=== PATIENT | male | born 1955 | race Caucasian/White ===

== ENCOUNTER 2025-05-10 07:33 | Outpatient (CLI) | payer MEDICARE, SELFPAY ==
--- NOTE | ~2025-05-10 | PE_ITS ---
EXAMINATION: PET_PETPSMAST_PT DATE: 05/10/2025 10:46 INDICATION: Prostate cancer TECHNIQUE: 5.561 mCi of Illucix Ga-68([id number]) was administered i.v. Low dose computed tomography (CT) images were acquired from the base of the brain to the base of the brain to the proximal thighs for attenuation correction and anatomic localization. Positron emission tomography (PET) images were acquired in the same distribution beginning 78 minutes after injection. Images including fused PET/CT images were reconstructed in axial, coronal, and sagittal planes. Automated exposure control technique was employed. The dose-length product was 888.41mGy-cm. COMPARISON: None FINDINGS: Head/neck: Typical pattern of symmetric physiologic increased activity in the lacrimal, parotid and submandibular glands as well as along the mucosa of the nasal and oral cavities, pharynx and hypopharynx. No pathologically enlarged cervical lymphadenopathy or suspicious foci of increased uptake in the visualized head or neck. Atherosclerotic calcifications at the bilateral carotid bulbs. Chest: L5 left upper lobe nodule along with calcified left hilar and mediastinal lymph nodes consistent with old granulomatous disease. Mild dependent atelectasis in both lower lobes. No suspicious pulmonary nodules, pneumonia, pulmonary edema or pleural effusion. Heart size is normal. Atherosclerotic coronary artery calcification and likely coronary artery stenting. No pericardial effusion. Thoracic aorta is normal in caliber. No pathologically enlarged or PSMA avid thoracic lymphadenopathy. Abdomen/pelvis/proximal thighs: Physiologic renal accumulation and excretion of activity in the kidneys, bladder and along portions of ureters. Photopenic defects associated with low- attenuation bilateral renal cysts measuring 3.8 cm and the right and 2.5 cm on the left. Prostatomegaly measuring 4.9 x 3.5 cm. Approximately 1 cm focus of prominent increased activity at the left peripheral zone of the prostate with maximal SUV of 25.1 consistent with primary prostate cancer. Small hepatic calcific lesions consistent with old granulomatous disease. Subcentimeter low- attenuation likely cyst in the left hepatic lobe. Normal degree and slightly heterogenous pattern of increased uptake throughout the liver and spleen without radiologic correlate or dominant PSMA avid lesion. The gallbladder, pancreas and left adrenal gland are normal. 1.6 cm low-attenuation right adrenal adenoma. Moderate uptake scattered throughout the bowels with typical duodenal and proximal jejunal predominance and without radiologic correlate, also likely physiologic. There is prominent sigmoid predominant diverticulosis without adjacent inflammatory change to suggest diverticulitis. Normal appendix. 8-9 mm PSA may avid left pararectal lymph node with maximal SUV of 36.6 consistent with metastatic disease. No other abnormal foci of increased uptake or pathologically enlarged lymphadenopathy in the abdomen, pelvis or proximal thighs. Musculoskeletal: Moderate cervical and severe thoracic and lumbar spondylosis. T9 compression fracture. Additional mild anterior wedging at T11, T12 and L1 which may be physiologic. Small focus of mild likely extravasated activity at the right antecubital fossa the site of injection. No suspicious lytic, blastic or abn ormally PSMA avid bone lesions. IMPRESSION: 1. Focus of prominent increased activity at the left peripheral zone of the prostate consistent with primary prostate cancer. 2. Enlarged PSMA avid left kristy rectal lymph node consistent with metastatic disease. Reviewed, dictated and finalized at location A. ASSEMBLER IMPRESSION: 1. Focus of prominent increased activity at the left peripheral zone of the pro state consistent with primary prostate cancer. 2. Enlarged PSMA avid left kristy rectal lymph node consistent with metastatic di sease.
== END 2025-05-10 07:34 | disposition home or self-care (01) ==
PROVIDERS: Visit Provider Urology
DX: C61 Malignant neoplasm of prostate (principal)
CPT/HCPCS: 78815; A9596